=== PATIENT | male | born 1985 | race Caucasian/White ===

== ENCOUNTER 2018-04-20 21:28 | Emergency (ER) | payer OTHER, BC ==
[2018-04-20 21:38] VITALS: BP 142/86; PULSE 97; RESP 18; TEMP 98.5; O2SAT 95
[2018-04-20] MEDS ORDERED: Amoxicillin-Clav 875-125 mg Tab PO STA (21:52)
--- NOTE | 2018-04-20 21:57 | C.PDOC ---
History Of Present Illness 33 year old male who states he tripped and fell injuring his lower lip on a dresser at 08:00. Patient states he sustained a laceration to the inside of his lower lip, he reports it stopped bleeding but still has pain to the area which prompted visit. Denies LOC or other injuries. Time Seen by Provider: 04/20/18 21:39 Chief Complaint (Nursing): Abnormal Skin Integrity History Per: Patient History/Exam Limitations: no limitations Onset/Duration Of Symptoms: Hrs Current Symptoms Are (Timing): Still Present Location Of Injury: Anterior: Face (lower lip) Quality Of Symptoms: Painful Recent travel outside of the [place]: No Past Medical History Reviewed: Historical Data, Nursing Documentation, Vital Signs Vital Signs: Last Vital Signs Temp 98.5 F 04/20/18 21:35 Pulse 97 H 04/20/18 21:35 Resp 18 04/20/18 21:35 BP 142/86 04/20/18 21:35 Pulse Ox 95 04/20/18 22:04 Surgical History: Tonsillectomy Family History: States: No Known Family Hx - Social History Hx Alcohol Use: Yes Hx Substance Use: No - Immunization History Hx Tetanus Toxoid Vaccination: Yes (PER PT 4 YEARS AGO) Hx Influenza Vaccination: No Review Of Systems ENT: Positive for: Mouth Pain Neurological: Negative for: Dizziness, Other (LOC) Physical Exam - Physical Exam Appears: Non-toxic Skin: Normal Color, Warm, Dry Head: Atraumatic, Normacephalic Eye(s): bilateral: Normal Inspection Oral Mucosa: Moist Tongue: Normal Appearing Lips: Other (Abrasion to inside lower lip, no active bleeding) Teeth: Normal Dentition Gingiva: Normal Appearing, No Bleeding Neck: Normal, No Midline Cervical Tenderness, No Paracervical Tenderness, Supple Neurological/Psych: Oriented x3, Normal Speech ED Course And Treatment O2 Sat by Pulse Oximetry: 95 (Room air) Pulse Ox Interpretation: Normal Medical Decision Making Medical Decision Making: Patient is resting comfortably in the ER in no acute distress, there is no active bleeding at this time and no need for sutures, will start on augmentin for infection prevention. Disposition - Disposition Referrals: [facility] [Outside] Disposition: HOME/ ROUTINE Disposition Time: 21:57 Condition: GOOD Additional Instructions: Rinse the mouth out after meals and take antibiotics until completed. Follow up with the medical doctor within 1-2 days, Return if worsened. Prescriptions: Amoxicillin/Clavulanate [Augmentin 875 MG-125 MG] 1 tab PO BID #14 tab Instructions: Wound Care (DC), Skin Abrasions (DC) Forms: [facility] ([place]), Work Excuse - Clinical Impression Clinical Impression: Abrasion of oral cavity - PA / [employer] / Resident Statement MD/DO has reviewed & agrees with the documentation as recorded. - Scribe Statement The provider has reviewed the documentation as recorded by the Scribheena Young All medical record entries made by the Harithaibheena were at my direction and personally dictated by me. I have reviewed the chart and agree that the record accurately reflects my personal performance of the history, physical exam, medical decision making, and the department course for this patient. I have also personally directed, reviewed, and agree with the discharge instructions and disposition.
[2018-04-20] MEDS ORDERED: Amoxicillin-Clav 875-125 mg Tab PO ONE (22:01)
== END 2018-04-20 22:15 | disposition home or self-care (01) ==
LOC: C.ER 21:28
DX: S00.512A Abrasion of oral cavity, initial encounter (principal); W01.190A Fall on same level from slipping, tripping and stumbling with subsequent striking against furniture, initial encounter